=== PATIENT | female | born 1935 | race Two or more races ===

== ENCOUNTER 2020-02-29 17:14 | Emergency (ER) | payer MEDICARE, OTHER ==
[~2020-02-29] VITALS: Ht 152.4 cm; Wt 59.0 kg
[~2020-02-29 17:14] MED LIST: ASPI-1152 PO; FENO48TA6 PO; METF-440 PO; SIMV-49 PO
[2020-02-29 17:23] VITALS: BP 153/104
--- NOTE | 2020-02-29 17:33 | NUR ---
AT BEDSIDE FOR EVAL.
[2020-02-29] MEDS ORDERED: KETOROLAC TROMETHAMINE 15 MG/ML VIAL ONE (17:37)
--- NOTE | 2020-02-29 17:55 | NUR ---
PT [facility] [facility]UGHTER TERRANCE [phone]
[2020-02-29] MEDS ORDERED: KETOROLAC TROMETHAMINE INJ 30 MG/ML VIAL IM ONE (18:00)
--- NOTE | 2020-02-29 18:43 | NUR ---
KIRBY RUBIO PT SON WILL BE HERE TO PICK HER UP.
--- NOTE | 2020-02-29 19:12 | NUR ---
Patient discharged to home in stable condition. Written and verbal after care instructions given. Patient verbalizes understanding of instruction.
== END 2020-02-29 19:13 | disposition home or self-care (01) ==
LOC: ER 17:34
DX: M54.16 Radiculopathy, lumbar region (principal); I10 Essential (primary) hypertension; E11.9 Type 2 diabetes mellitus without complications; Z79.899 Other long term (current) drug therapy; Z79.82 Long term (current) use of aspirin
CPT/HCPCS: 72100; 72170; 96372; 99284; J1885

== ENCOUNTER 2020-07-18 18:10 | Emergency (ER) | payer MEDICARE, OTHER ==
[~2020-07-18] VITALS: Ht 152.4 cm; Wt 59.0 kg
[~2020-07-18 18:10] MED LIST changes: -ASPI-1152 PO; +ASPI-1420 PO
--- NOTE | 2020-07-18 18:15 | NUR ---
ER BED 2 PT CAME IN WITH CHIEF COMPLAINT OF DIZZINESS. UPON ARRIVAL, BP 220/80 HR 94. VS CHECKED. HOOKED ON MONITOR. IV ACCESS STARTED. AWAITING TO BE SEEN BY .
[2020-07-18] MEDS ORDERED: LABETALOL HCL IV 100MG VIAL ONE (18:44)
[2020-07-18 18:51] LABS: BASOPHILS # (AUTO) 0.1 /CMM (0.0-0.2); BASOPHILS % (AUTO) 0.6 % (0.0-2.0); EOSINOPHILS % (AUTO) 1.7 % (0.0-6.0); HEMATOCRIT 42 % (33-45); HEMOGLOBIN 13.8 g/dL (11.5-14.8); LYMPHOCYTES % (AUTO) 22.6 % (20.0-44.0); MEAN CORPUSCULAR HGB CONC 33 g/dl (31.0-36.0); MEAN CORPUSCULAR VOLUME 94 fL (82-100); MONOCYTES # (AUTO) 0.5 /CMM (0.1-1.30); MONOCYTES % (AUTO) 5.7 % (2.0-12.0); NEUTROPHILS # (AUTO) 6.3 /CMM (1.8-8.9); NEUTROPHILS % (AUTO) 69.4 % (43.0-81.0); PLATELET COUNT (AUTO) 195 /CMM (150-450); RED BLOOD CELL COUNT(AUTO) 4.48 MIL/uL (4.0-5.2)
[2020-07-18] MEDS ORDERED: ATOR40TA PO (18:55)
[2020-07-18] MEDS ORDERED: MECL-182 PO (18:55)
[2020-07-18] MEDS ORDERED: IV NS 0.9% 500 ML BAG IV ONE (19:00)
[2020-07-18] MEDS ORDERED: LABETALOL HCL IV 100MG VIAL IV ONE (19:00)
--- NOTE | 2020-07-18 19:02 | NUR ---
CT PT OUT FOR CT
[2020-07-18 19:17] LABS: CALCIUM, SERUM 9.7 mg/dL (8.5-10.1); CARBON DIOXIDE 28 mmol/L (21-32); CHLORIDE 103 mmol/L (98-107); CREATININE 0.7 mg/dL (0.6-1.3); GLUCOSE 135 mg/dL (74-106); POTASSIUM 3.5 mmol/L (3.5-5.1); SODIUM SERUM 137 mmol/L (136-145); UREA NITROGEN, BLOOD 25 mg/dL (7-18)
--- NOTE | 2020-07-18 19:25 | NUR ---
COVID COVID SWAB DONE.
--- NOTE | 2020-07-18 19:25 | NUR ---
CLINICALS AND MOVE PACKET TURNED IN.
[2020-07-18 19:29] LABS: ALANINE AMINOTRANSFERASE 18 U/L (12-78); ALBUMIN 3.8 g/dL (3.4-5.0); ALKALINE PHOSPHATASE 86 U/L (46-116); ASPARTATE AMINOTRANSFERASE 21 U/L (15-37); BILIRUBIN,DIRECT 0.1 mg/dL (0.0-0.2); BILIRUBIN,TOTAL 0.4 mg/dL (0.2-1.0); TOTAL PROTEIN, SERUM 8.2 g/dL (6.4-8.2)
--- NOTE | 2020-07-18 19:30 | NUR ---
SBAR SBAR DONE WITH JL RN. REPORT GIVEN. PT CURRENT BP IS 170/94. NO DISTRESS NOTED.
[2020-07-18 19:38] LABS: APPEARANCE,URINE Clear (CLEAR); BILIRUBIN,URINE Negative (NEGATIVE); BLOOD, URINE Trace-lysed Ery/uL (NEGATIVE); COLOR,URINE Light yellow (YELLOW); KETONES,URINE Negative (NEGATIVE); LEUKOCYTE ESTERASE ,URINE Negative (NEGATIVE); NITRITE, URINE Negative (NEGATIVE); PH,URINE 7.5 (5.0-8.0); PROTEIN,URINE Negative (NEGATIVE); UGLUCOSE Negative (NEGATIVE); UROBILINOGEN,URINE 0.2 EU/dL (0.2)
--- NOTE | 2020-07-18 19:53 | NUR ---
CALL FROM LAB, COVID NEGATIVE.
[2020-07-18 19:56] LABS: BACTERIA,URINE Few /HPF (None Seen); RBC,URINE 0-2 /HPF (0-2); SQUAMOUS EPITHELIAL CELL,UR Few /HPF (None Seen); WBC,URINE 0-2 /HPF (0-3)
--- NOTE | 2020-07-18 20:16 | NUR ---
PER DR. TSANG, PT MEDICALLY CLEARED FOR DISCHARGE. Patient discharged to home in stable condition. Written and verbal after care instructions given. Patient verbalizes understanding of instruction.IV removed. Catheter intact and site benign. Pressure and 4x4 applied to site. No bleeding noted.Pt ambulatory with a steady gait
[2020-07-18 20:17] VITALS: BP 170/72
== END 2020-07-18 20:17 | disposition home or self-care (01) ==
LOC: ER 18:12
DX: I10 Essential (primary) hypertension (principal); R42 Dizziness and giddiness; R51 Headache; Z20.828 Contact with and (suspected) exposure to other viral communicable diseases; I45.2 Bifascicular block; R73.03 Prediabetes; Z79.899 Other long term (current) drug therapy
CPT/HCPCS: 36415; 70450; 71045; 80048; 80076; 81001; 84484; 85025; 87081; 87086; 87426; 93005 ×2; 96374; 99285; J3490; J7040; 81000-TC; C9803-CS

== ENCOUNTER 2022-07-17 10:43 | Emergency (ER) | payer MEDICARE, OTHER ==
[~2022-07-17] VITALS: Ht 152.4 cm; Wt 61.7 kg
[~2022-07-17 10:43] MED LIST changes: -ASPI-1420 PO; +ATOR40TA PO; -FENO48TA6 PO; +MECL-182 PO; -METF-440 PO; -SIMV-49 PO
[2022-07-17 10:54] VITALS: BP 149/55
--- NOTE | 2022-07-17 10:55 | NUR ---
bib family w/ c/o throat discomfort/pain x2 months. no sob endorsed by pt. to er bed 1.
--- NOTE | 2022-07-17 11:11 | NUR ---
TECH AT BEDSIDE FOR EKG
--- NOTE | 2022-07-17 11:17 | NUR ---
FACILITY TECHNICIAN AT BEDSIDE FOR XRAY
[2022-07-17] MEDS ORDERED: PRED20TA PO (11:30)
[2022-07-17] MEDS ORDERED: AMOX500C2 PO (11:30)
--- NOTE | 2022-07-17 11:38 | NUR ---
Patient discharged to home in stable condition. Written and verbal after care instructions given. Patient verbalizes understanding of instruction.
== END 2022-07-17 11:40 | disposition home or self-care (01) ==
LOC: ER 10:46
DX: R59.0 Localized enlarged lymph nodes (principal); I10 Essential (primary) hypertension; E11.9 Type 2 diabetes mellitus without complications; Z60.2 Problems related to living alone; Z79.899 Other long term (current) drug therapy
CPT/HCPCS: 71045-TC

== ENCOUNTER 2022-08-21 22:26 | Emergency (ER) | payer MEDICARE, OTHER ==
[~2022-08-21] VITALS: Ht 152.4 cm; Wt 59.0 kg
[~2022-08-21 22:26] MED LIST changes: +AMOX500C2 PO; +PRED20TA PO
--- NOTE | 2022-08-21 22:50 | NUR ---
BIBFAMILY FROM HOME C/O SORE THROAT, COUGH, CONGESTION, PHLEGM X 8DAYS. A/OX4. TOLERATING R/A WELL WITH NO RESP DISTRESS. AMBULATORY WITH STEADY GAIT. SAFETY MEASURES IN PLACE.
--- NOTE | 2022-08-21 23:03 | NUR ---
INSPECTOR MULTIFOCAL LENS AT PT'S BEDSIDE
--- NOTE | 2022-08-22 02:02 | NUR ---
Patient discharged to home in stable condition. Written and verbal after care instructions given. Patient verbalizes understanding of instruction.
[2022-08-22 02:05] VITALS: BP 152/72
== END 2022-08-22 02:06 | disposition home or self-care (01) ==
LOC: ER 22:45
DX: B34.9 Viral infection, unspecified (principal); Z20.822 Contact with and (suspected) exposure to COVID-19; E11.9 Type 2 diabetes mellitus without complications; I10 Essential (primary) hypertension; Z79.899 Other long term (current) drug therapy; E78.00 Pure hypercholesterolemia, unspecified
CPT/HCPCS: 71045-TC; C9803

== ENCOUNTER 2023-01-03 16:53 | Emergency (ER) | payer MEDICARE, OTHER ==
[~2023-01-03] VITALS: Ht 152.4 cm; Wt 61.2 kg
--- NOTE | 2023-01-03 17:04 | NUR ---
BIBS C/O BUMP ON THE BACK OF HER TONGUE, STATES THAT SHE HAS PAIN WHILE SWALLOWING AND UNABLE TO KEEP FOOD DOWN SINCE THIS TUESDAY. AWAITING MD DONNELLY.
[2023-01-03] MEDS ORDERED: IV NS 0.9% 1,000 ML BAG IV ONE (17:30)
--- NOTE | 2023-01-03 17:46 | NUR ---
IV ESTABLISHED R AC 20G. LABS DRAWN AND COLLECTED AT BEDSIDE.
--- NOTE | 2023-01-03 17:47 | NUR ---
RAPID FLU, COVID AND STREP COLLECTED AND SENT.
[2023-01-03 17:55] LABS: BASOPHILS # (AUTO) 0.1 K/uL (0.0-0.2); BASOPHILS % (AUTO) 0.5 % (0.0-2.0); EOSINOPHILS % (AUTO) 0.9 % (0.0-6.0); HEMATOCRIT 43 % (33-45); HEMOGLOBIN 14.1 g/dL (11.5-14.8); LYMPHOCYTES # (AUTO) 2.9 K/uL (0.8-4.8); LYMPHOCYTES % (AUTO) 25.9 % (20.0-44.0); MEAN CORPUSCULAR HGB CONC 32 g/dl (31.0-36.0); MEAN CORPUSCULAR VOLUME 92 fL (82-100); MONOCYTES # (AUTO) 0.9 K/uL (0.1-1.30); NEUTROPHILS # (AUTO) 7.3 K/uL (1.8-8.9); NEUTROPHILS % (AUTO) 64.7 % (43.0-81.0); PLATELET COUNT (AUTO) 182 K/uL (150-450); RED BLOOD CELL COUNT(AUTO) 4.71 MIL/uL (4.0-5.2); WHITE BLOOD COUNT (AUTO) 11.4 K/uL (4.3-11.0)
[2023-01-03 18:14] LABS: CALCIUM, SERUM 9.3 mg/dL (8.5-10.1); CREATININE 0.8 mg/dL (0.6-1.3); POTASSIUM 3.7 mmol/L (3.5-5.1)
[2023-01-03] MEDS ORDERED: IOHEXOL-300 100 ML VIAL IV ONE (18:31)
[2023-01-03] MEDS ORDERED: IV NS 0.9% 250 ML IV ONE (18:31)
[2023-01-03] MEDS ORDERED: TRAM-351 PO (20:35)
[2023-01-03 20:54] VITALS: BP 149/63
--- NOTE | 2023-01-03 20:54 | NUR ---
IV GENARO REMOVED
--- NOTE | 2023-01-03 20:54 | NUR ---
Patient discharged to home in stable condition. Written and verbal after care instructions given. Patient verbalizes understanding of instruction.
== END 2023-01-03 20:55 | disposition home or self-care (01) ==
LOC: ER 16:55
DX: R22.1 Localized swelling, mass and lump, neck (principal); I10 Essential (primary) hypertension; E11.9 Type 2 diabetes mellitus without complications; E78.00 Pure hypercholesterolemia, unspecified; Z79.899 Other long term (current) drug therapy; Z20.822 Contact with and (suspected) exposure to COVID-19
CPT/HCPCS: 99285; 96360; 70491; 87426; 87804 ×3; 85025; 80048; 36415; 87880; J7030; J7050; Q9967; 86403-TC; C9803